=== PATIENT | female | born 1980 | race Caucasian/White ===

== ENCOUNTER 2017-02-04 20:19 | Emergency (ER) | payer OTHER ==
[~2017-02-04] VITALS: Wt 116.1 kg
[~2017-02-04 20:19] MED LIST: 'XANAX1 MG PO; AUGMENTIN 875-875 MG PO; CLARITIN10 MG PO; CYMBALTA20 M1 PO; CYMBALTA60 MG PO; DELTASONE20 M1 PO; DULOXETINE HCL60 MG PO; DUONEB 3 MG/3 ML3 M1 INH; LAMICTAL25 MG PO; LAMOTRIGINE100 MG PO; NAPROSYN500 MG PO; PROAIR RESPICL90 MCG INH; ROBITUSSIN AC 110 ML PO; VIBRAMYCIN100 MG PO; VITAMIN D50000 I3 PO; XANAX1 MG PO
[2017-02-04] MEDS ORDERED: Motrin,Rufen800 MG PO (21:57)
[2017-02-04] MEDS ORDERED: CYCLOBENZAPRINE5 M3 PO (21:57)
== END 2017-02-04 22:04 | disposition home or self-care (01) ==
LOC: ED 20:19
DX: S10.83XA Contusion of other specified part of neck, initial encounter (principal); S20.222A Contusion of left back wall of thorax, initial encounter; F17.200 Nicotine dependence, unspecified, uncomplicated; Z79.899 Other long term (current) drug therapy; Z88.5 Allergy status to narcotic agent; W01.198A Fall on same level from slipping, tripping and stumbling with subsequent striking against other object, initial encounter; Y93.89 Activity, other specified; Y92.69 Other specified industrial and construction area as the place of occurrence of the external cause; Y99.9 Unspecified external cause status

== ENCOUNTER 2017-03-06 19:09 | Emergency (ER) | payer OTHER ==
[~2017-03-06] VITALS: Ht 162.5 cm; Wt 121.1 kg
[~2017-03-06 19:09] MED LIST changes: +CYCLOBENZAPRINE5 M3 PO; +Motrin,Rufen800 MG PO
[2017-03-06] MEDS ORDERED: PROVENTIL0.09 MG/A1 INH (19:31)
[2017-03-06] MEDS ORDERED: PREDNISONE20 M1 PO (21:10)
== END 2017-03-06 21:16 | disposition home or self-care (01) ==
LOC: ED 19:09
DX: J45.901 Unspecified asthma with (acute) exacerbation (principal); F17.200 Nicotine dependence, unspecified, uncomplicated; Z88.6 Allergy status to analgesic agent

== ENCOUNTER 2017-03-23 00:33 | Emergency (ER) | payer OTHER ==
[~2017-03-23] VITALS: Ht 162.5 cm; Wt 113.4 kg
[~2017-03-23 00:33] MED LIST changes: +PREDNISONE20 M1 PO; +PROVENTIL0.09 MG/A1 INH
[2017-03-23] MEDS ORDERED: PREDNISONE20 M1 PO (01:08)
== END 2017-03-23 01:50 | disposition home or self-care (01) ==
LOC: ED 00:33
DX: J45.901 Unspecified asthma with (acute) exacerbation (principal); F17.200 Nicotine dependence, unspecified, uncomplicated; Z71.6 Tobacco abuse counseling; Z88.6 Allergy status to analgesic agent; Z79.899 Other long term (current) drug therapy